=== PATIENT | male | born 1995 | race Caucasian/White ===

== ENCOUNTER 2020-06-01 14:46 | Emergency (ER) | payer BC, SELFPAY ==
[2020-06-01 14:58] VITALS: BP 145/83; PULSE 74; RESP 18; TEMP 36.8; O2SAT 100
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
--- NOTE | 2020-06-01 16:40 | PC.NURSE ---
Patients urine sample unable to be sent at this time due to patient spilling the sample when returning to his room.
[2020-06-01 17:19] LABS: Add Urine Microscopic? YES; Appearance Urine Clear (Clear); Bilirubin Urine Negative (Negative); Blood Urine Negative (Negative); Color Urine Yellow (Yellow); Glucose Urine UA Negative (Negative); Ketones Urine Negative (Negative); Leukocyte Esterase Ur Negative LEU/UL (Negative); Nitrate Urine Negative (Negative); Protein Urine Negative (Negative); RBC Urine 0-2 /hpf (0-2); Specific Grav Ur 1.015 (1.001-1.035); Urobilinogen Urine Negative mg/dL (<2.0); WBC Urine 0-3 /hpf
[2020-06-01 17:39] LABS: HIV 1/2 Ab P24 Ag Result Negative (Negative)
[2020-06-01 18:42] VITALS: BP 142/88; PULSE 84; RESP 16; O2SAT 98
[2020-06-04 09:50] LABS: Rapid Plasma Reagin Non-Reactive (NonReactive)
== END 2020-06-01 18:46 | disposition home or self-care (01) ==
PROVIDERS: Emergency Medicine Emergency Medical Services; Emergency Provider Emergency Medicine
DX: R21 Rash and other nonspecific skin eruption (principal)
CPT/HCPCS: 36415; 81001; 86592; 86703; 87491; 87591; 99283; G0432